=== PATIENT | female | born 1955 | race American Indian/Alaskan Native ===

== ENCOUNTER 2019-02-23 11:29 | Outpatient (CLI) | payer MEDICARE ==
--- NOTE | 2019-02-25 09:19 | Mammography Report ---
DIGITAL SCREENING MAMMOGRAM WITH CAD, 02/23/2019 INDICATION: Routine screening mammography. TECHNIQUE: Digital bilateral 2D mammography was obtained in the craniocaudal and mediolateral obliq ue projections. This examination was interpreted with the benefit of Computer-Aided Detection analysi s. COMPARISON: 03/17/2017 FINDINGS: Breast Density: There are scattered areas of fibroglandular density. There is no evidence of new mass, suspicious calcifications or architectural distortion in either hannah ast. Previously identified circumscribed low-density left breast masses are less prominent. IMPRESSION: No mammographic evidence of malignancy. Follow up recommendation: Routine yearly BI-RADS Category 2: Benign. A "normal" or negative report should not discourage follow up or biopsy of a clinically significant f inding. A written summary of these findings will be mailed to the patient. The patient will be entered into a mammography reporting system which will generate a reminder letter for the patient's next appointmen t at the appropriate interval. The [employer] recommends yearly mammograms starting at age 40 and continuing as l kg as a woman is in good health. Breast MRI is recommended for women with an approximate 20-25% or greater lifetime risk of breast cancer, including women with a strong family history of breast or ova cuauhtemoc cancer or who have been treated for Hodgkin's disease. Signer Name: Bo Gilbert MD Signed: 02/25/2019 9:14 AM Workstation Name: [id number]
== END 2019-02-23 11:30 | disposition home or self-care (01) ==
LOC: MAMMO 11:29
PROVIDERS: ATTEND Family Medicine Adult Medicine
DX: Z12.31 Encounter for screening mammogram for malignant neoplasm of breast (principal)
CPT/HCPCS: 77067

== ENCOUNTER 2020-06-20 09:24 | Outpatient (CLI) | payer MEDICARE ==
--- NOTE | 2020-06-20 11:14 | Mammography Report ---
DEXA BONE DENSITY SCAN INDICATION / CLINICAL INFORMATION: MENOPAUSAL SYNDROME. 65 years Female COMPARISON: None available. LUMBAR SPINE, L1-L4: - Bone mineral density (BMD) = 0.946 g/cm2. - T-score = -0.9 - Z-score = 0.2 Change (%) since most recent prior (if available): None available. LEFT HIP, NECK : - Bone mineral density (BMD) = 0.736 g/cm2. - T-score = -1.0 - Z-score = -0.2 Change (%) since most recent prior (if available): None available. IMPRESSION: 1. WHO Classification: Osteopenia. Fracture Risk: Increased. BMD Reporting Guidelines (ISCD, 2015) BMD Reporting in Postmenopausal Women and in Men Age 50 and Older * T-scores are preferred. * The WHO densitometric classification is applicable. BMD Reporting in Females Prior to Menopause and in Males Younger Than Age 50 * Z-scores, not T-scores, are preferred. This is particularly important in children. * A Z-score of -2.0 or lower is defined as below the expected range for age, and a Z-score above -2. 0 is within the expected range for age. * Osteoporosis cannot be diagnosed in men under age 50 on the basis of BMD alone. * The WHO diagnostic criteria may be applied to women in the menopausal transition. http://www.iscd.org/official-positions/2056-sidd-rhjfzvxs-positions-adult/ Signer Name: Elijah Morton MD Signed: 06/20/2020 11:10 AM Workstation Name: [email or web address]
--- NOTE | 2020-06-20 17:08 | Mammography Report ---
DIGITAL SCREENING MAMMOGRAM WITH CAD, 06/20/2020 CLINICAL INFORMATION / INDICATION: Routine screening mammography. SCREENING TECHNIQUE: Digital bilateral 2D mammography was obtained in the craniocaudal and mediolateral obliqu e projections. This examination was interpreted with the benefit of Computer-Aided Detection analysis . COMPARISON: 02/13/2019 and 03/17/2017 FINDINGS: Breast Density: There are scattered areas of fibroglandular density. No dominant mass, suspicious calcifications, or architectural distortion in either breast. Stable benign densities in the left breast. IMPRESSION: No mammographic evidence of malignancy. Follow up recommendation: Routine yearly BI-RADS Category 2: Benign. A "normal" or negative report should not discourage follow up or biopsy of a clinically significant f inding. A written summary of these findings will be mailed to the patient. The patient will be entered into a mammography reporting system which will generate a reminder letter for the patient's next appointmen t at the appropriate interval. The [employer] recommends yearly mammograms starting at age 40 and continuing as l kg as a woman is in good health. Breast MRI is recommended for women with an approximate 20-25% or greater lifetime risk of breast cancer, including women with a strong family history of breast or ova cuauhtemoc cancer or who have been treated for Hodgkin's disease. Signer Name: Milind Dorsey MD Signed: 06/20/2020 5:04 PM Workstation Name: [email or web address]
== END 2020-06-20 09:25 | disposition home or self-care (01) ==
LOC: MAMMO 09:24
PROVIDERS: ATTEND Obstetrics & Gynecology
DX: Z12.31 Encounter for screening mammogram for malignant neoplasm of breast (principal); Z13.820 Encounter for screening for osteoporosis; R10.2 Pelvic and perineal pain; Z78.0 Asymptomatic menopausal state; Z90.79 Acquired absence of other genital organ(s)
CPT/HCPCS: 77067; 77080